=== PATIENT | female | born 1960 | race Caucasian/White ===

== ENCOUNTER 2022-01-15 05:21 | Emergency (ER) | payer MEDICARE, OTHER, SELFPAY ==
[2022-01-15 05:30] VITALS: BP 106/62; RESP 18; TEMP 36.9; BMI 74.8
--- NOTE | 2022-01-15 06:04 | CRLHL7_ITS ---
For Patients: As a result of the Cures Act, medical imaging exams and procedure reports are released immediately into your electronic medical record. You may view this report before your referring provider. If you have questions, please contact your health care provider. Indication: Shoulder pain Technique: Two-view right shoulder Comparison: No comparison Findings: Normal articulation glenohumeral joint. No fractures or dislocations. Subacromial space maintained possible calcific tendinosis. Dictated by Ladan Delgado MD @ 01/15/2022 7:20:11 AM (Electronically Signed)
[2022-01-15] MEDS: KETOROLAC 30 MG/ML inj IM (06:06)
--- NOTE | 2022-01-15 08:45 | ED.UPPEXIN ---
HPI - Extremity Injury (Upper) General Date Seen: 01/15/22 Chief Complaint: Shoulder Injury/Pain Stated Complaint: RT side rotator cuff pain Time Seen by Provider: 01/15/22 05:42 Source: patient, RN notes reviewed and old records reviewed Mode of arrival: ambulatory Limitations: no limitations History of Present Illness HPI narrative: Patient is a 61-year-old female with a history of cesar currently on sertraline, history of left rotator cuff repair who comes to the [facility] with complaints of right shoulder pain. Patient notes that she has not seen a physician for this and has had 3 months of ongoing right shoulder pain that has been getting gradually worse. It is definitely worse at night. She states now she is having a hard time with lifting her arm although should when she demonstrates she does quite well. She has not had any fever chills. She denies any trauma or falls. She has no numbness or tingling of the arm. She also denies any swelling. She has come to the emergency room this morning at 0530 hours because she states that she has not been able to sleep last night. She states that she takes Seroquel and this usually helps her with this sleep but not tonight. She is requesting something for pain. Movement increases her pain. She has not taken any medications at home for discomfort. Related Data Home Medications Medication Instructions Recorded Confirmed sertraline 50 mg tablet mg 01/15/22 Allergies Allergy/AdvReac Type Severity Reaction Status Date / Time PCN Allergy Severe rash Uncoded 01/15/22 05:40 Review of Systems Status of ROS: Reports: 10 or more systems reviewed and unremarkable except as noted in History and below Const: Denies: fever or chills Eyes: Denies: change in vision ENMT: Denies: neck pain Cardio: Denies: chest pain GI: Denies: abdominal pain Musculo: Reports: joint pain and limited range of motion; Denies: neck pain, extremity pain (Right shoulder) or extremity swelling Integ/Breast: Denies: rash Neuro: Denies: headache or numbness in extremities Psych: Reports: other (History of cesar but denies any problems at this time) [facility] Medical History Abnormal pupillary function, unspecified ADD (attention deficit disorder) Anxiety Bipolar 1 disorder Depression Hypermetropia Personality disorder Prediabetes Presbyopia Social History Smoking Status: Current every day smoker What tobacco products do you use: cigarettes Smoking packs per day: 1 Smoking cigarettes per day: 20.0 Years smoked: 30 Smoking pack-years: 30.00 How often do you have a drink containing alcohol: never AUDIT-C Alcohol total score: 0 Non-prescribed substance use: denies use Exam Const: Vital Signs, click to edit/add: Vital Signs - 24 hr 01/15/22 05:30 Temperature 98.5 F Respiratory Rate 18 Blood Pressure [10 6/62] 106/62 Oxygen Delivery Me thod Room Air Patient is noted to be pacing from the bed to the corner. She wants to keep her door open. She has some mildly pressured speech. She is easily redirectable. Documenting provider has reviewed patient's vital signs: yes Common normals: oriented x3, healthy appearing and alert General appearance: cooperative and anxious; no odor of alcohol detected HENMT: Common normals: normocephalic, head/scalp atraumatic and external nose normal Head and scalp: normocephalic and atraumatic Face and sinus: normal facial exam Nose: external nose normal Eye: Common normals: PERRL General eye: normal appearance of both eyes Pupil: PERRL Neck & C-Spine: Common normals: full ROM and supple General: no tenderness Resp: Common normals: normal respiratory effort and clear to auscultation bilaterally Auscultation: clear to auscultation bilaterally Cardio: Common normals: regular rate and regular rhythm Rate: regular rate Rhythm: regular rhythm Peripheral pulses: brachial pulses present, radial pulses present and ulnar pulses present Extremity: Other: Patient has full sensation motor of the right upper extremity at the elbow wrist hands. She has a abduction to approximately 65?. Passive range of motion does not appear to cause her discomfort. No obvious swelling or erythema. Neuro: Common normals: oriented x3 Sensorium/orientation: alert Psych: Common normals: thought process normal and cooperative Attitude: agitated Activity/motor behavior: appropriate eye contact Speech: pressured Thought process: normal thought process Thought content: normal thought content Attention/concentration: attention grossly intact Memory/cognition: memory grossly intact Insight: fair Judgement: judgment good Other: Patient noted to frequently interrupt. Repeated suggestions are taken well and patient is directable. Course Course Hospital Course: At this time patient does not appear to have frozen shoulder as passive range of motion is full without discomfort. I believe she does have rotator cuff issues as pain appears to be worse at night and she has a history of this. Patient is seeing myself for the 1st time and has not seen primary MD. I have stressed the importance of follow-up. At this time will obtain x-ray as pain appears to be quite severe. Will also suggest injection of Toradol 30 mg IM. Would like to stay away from narcotics as well as steroids steroids in particular as patient has a history of cesar. Vital Signs Vital signs: Initial Vital Signs Temperature 98.5 F 01/15/22 05:30 Temperature Source Temporal Artery Scan 01/15/22 05:30 Respiratory Rate 18 01/15/22 05:30 Blood Pressure 106/62 01/15/22 05:30 Blood Pressure Mean 76 01/15/22 05:30 Oxygen Delivery Method 01/15/22 05:30 Vital Signs Temperature 98.5 F 01/15/22 05:30 Respiratory Rate 18 01/15/22 05:30 Blood Pressure 106/62 01/15/22 05:30 Oxygen Delivery Method 01/15/22 05:30 Temperature 98.5 F 01/15/22 05:30 Respiratory Rate 18 01/15/22 05:30 Blood Pressure 106/62 01/15/22 05:30 Oxygen Delivery Method 01/15/22 05:30 MDM - Extremity Injury (Upper) MDM Narrative Medical decision making narrative: 1. Right shoulder pain-at this time I do believe patient has rotator cuff tendinitis. Patient received Toradol 30 mg IM and even though she said she was still having pain she was objectively markedly improved. Unfortunately I do not feels comfortable giving patient steroid given her history of cesar. Instead will have her use ibuprofen 600 mg every 8 hours and for breakthrough pain may use [place] 5/325, 1-2 tablets p[address] q.4-[address] Recommend follow-up with primary MD or orthopedics as soon as possible. I did tell patient that we would not be dispensing any more narcotics out of the ED. a check of the [employer] shows no recent narcotics. Patient denies any history of addiction and I do not find history of addiction in her past records. 2. History of cesar-patient did have some mildly pressured speech but is directable. Patient denies cesar being an issue at this time. 3. Disposition-patient is discharged home. Her son will give her a ride. She is instructed not to use alcohol or drive if using narcotics. Medical Records Attestation: I reviewed the patient's medical records. Imaging Data Right shoulder x-ray: Attestation: I have reviewed the pertinent imaging results. My impression: No fractures Radiologist's impression: No acute injuries Discharge Plan Discharge Clinical Impression: Right shoulder pain Patient Disposition: Home, Self-Care Condition: Improved Instructions: Shoulder Pain (ED) Additional Instructions: Suggest ibuprofen 600 mg every 8 hours as needed for discomfort. For pain not relieved by ibuprofen you may use Vicodin also known as [place] or hydrocodone sparingly. 1-2 tablets every 6-8 hours as needed. No further narcotic pain medication will be given out of the emergency room. You will need to follow-up with your primary MD or orthopedics for a recheck. Phone number to orthopedic and fracture clinic is [phone] Return to the emergency room for worsening symptoms or onset of new symptoms. Ice to the shoulder 20 minutes at a time 3 to 4 times a day will also help the discomfort. Prescriptions: No Action sertraline 50 mg tablet Follow Up/Referrals: Provider,Not a Local [Primary Care Provider] - Stand Alone Forms: [facility] Info Instructions
== END 2022-01-15 07:54 | disposition home or self-care (01) ==
PROVIDERS: Emergency Provider Family Medicine
DX: M25.511 Pain in right shoulder (principal)
CPT/HCPCS: 73030; 96372; 99283; 99284; J1885

== ENCOUNTER 2024-11-01 16:15 | Emergency (ER) | payer MEDICARE, MEDICAID, SELFPAY ==
--- OUTSIDE RECORDS SUMMARY | 2024-11-01 16:16 | XMS_ITS | Clinical Summary ---
Author Organization [facility] Address [address] [place] [id number] Care Team Providers Care Tax Services Professional Name Role Phone Clinic, No Pcp Or Primary Care Provider Unavaila ble Allergies Active Allergy Reactions Criticality Noted Date Comments Penicillins Hives 02/16/2006 Medications cholecalciferol (Vitamin D) 1,000 unit capsuleIndicati ons:Bipolar disorder with depression (HC) Take 1 Capsule (1,000 units) by mouth once daily. 30 Capsule 2 Active busPIRone 7.5 mg tabletIndicatio ns:Bipolar disorder with depression (HC) Take 1 Tablet (7.5 mg) by mouth three times daily. 300 Tablet 3 3 Active QUEtiapine (SEROQUEL) 300 mg tabletIndicatio ns:Bipolar disorder with depression (HC) Take 2 Tablets (600 mg) by mouth at bedtime. 180 Tablet 3 3 Active DULoxetine (CYMBALTA) 60 mg Delayed-release capsuleIndicati ons:Bipolar disorder with depression (HC) Take 1 Capsule (60 mg) by mouth once daily. 90 Capsule 3 3 Active FLUoxetine (PROZAC) 20 mg capsule Take 20 mg by mouth once daily. 4 Active hydrOXYzine HCL (ATARAX) 25 mg tablet 3 Active ammonium lactate 12% topical (LACHYDRIN) 12 % lotionIndicatio ns:Fissure in skin of both feet,Dry skin Apply topically to affected area(s) two times daily. 396 g 5 4 Active Active Problems Problem Noted Date Diagnosed Date Prediabetes 09/13/2022 Adenomatous colon polyp 08/16/2018 Overview (08/16/2018): Colonoscopy 07/2018 polyp, repeat in 5 years Cervical high risk HPV (human papillomavirus) te st positive 06/28/2018 Overview (06/16/2021): 06/2018-NIL/HPV+, HPV 16 & 18 negative 04/2021- NIL/HPV negative PLAN:Pap/HPV DUE 04/2024 Controlled substance agreement signed 12/19/2017 Overview (12/19/2017): 12/19/17 updated/ signed .Eugeina Jacobs DNP, DISCHARGE COORDINATOR, MICROFILMER/psychiatry History of bipolar disorder 08/24/2017 Depression 08/24/2017 Controlled substance agreement signed 08/24/2017 Overview (08/24/2017): 08/24/17 signed .Eugenia Jacobs DNP, DISCHARGE COORDINATOR, MICROFILMER/psychiatry Personality disorder 05/11/2017 Attention deficit hyperactiv ity disorder (ADHD), combined type 03/15/2017 Methamphetamine abuse, 12/1412/21/2016 narcotic agreement, chronic foot pain, Vicodin number 30 per month, RJ, 10/07/13 10/07/2013 Anxiety 09/02/2013 Foot pain, right 09/02/2013 Prediabetes 10/01/2012 ADD (attention deficit disorder) 12/26/2011 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 Bipolar I disorder- psychiat sayra Weinberg Associate of psychiatry 11/11/2009 smoker 11/11/2009 Routine health maintenance 11/11/2009 Overview (09/11/2022): will not do mammogram screening - her sister had 14 and then got cancer - this patient had 6 babies and knows they work Wanted one peek at the lungs 2021- will not do yearly CT Presbyopia 03/29/2006 Hypermetropia 03/29/2006 Abnormal pupillary function, unspecified 006 Immunizations Immunization Administration Dates Next Due Td (Age >=7 Years) 09/29/2007 Td, Preservative Free (age >= 7 Years) 8 Tdap 11/01/2010 Family History Medical History Relation Name Comments Good Health Father Good Health Mother Relation Name Status Comments Father Alive Mother Alive Social History Tobacco Use Types Packs/Day Years Used Date Smoking Tobacco: Every Day Cigarettes 1 30 Smokeless Tobacco: Never Tobacco Cessation:Ready to Q uit: No; Counseling Given: Yes Comments:0.5 ppd average for 20 years, then 1-1.5 ppd for next 20 years Alcohol Use Standard Drinks/Week Comments Yes 0 (1 standard drink = 0.6 oz pur e alcohol) 2-3x weekly PHQ-2 Answer Date Recorded PHQ-2 TOTAL SCORE 4 09/11/2022 Financial Resource Strain Answer Date R ecorded Difficulty of Paying Living Expenses Not on file 04/21/2021 Difficulty of Paying Living Expenses Not on file 04/21/2021 Comments No Sex and Gender Information Value Date Recorded Sex Assigned at Not on file Legal Sex Female 5:45 AM HEALTH INSURANCE SPECIALIST Gender Identity Not on file Sexual Orientation Not on file Obstetrics History Para Term AB IAB SAB Ectopic Multiple Livin g Live Births 6 Last Filed Vital Signs Vital Sign Reading Time Taken Comments Blood Pressure 115/78 09/11/2022 1:37 PM CDT Pulse 86 07/10/2023 4:06 PM CDT Temperature 36.8 C (98.3 F) 06/03/2021 1:43 PM HEALTH INSURANCE SPECIALIST Respiratory Rate 18 09/11/2022 1:37 PM CDT Oxygen Saturation 97% 07/10/2023 4:06 PM CDT Inhaled Oxygen Concentration - - Weight 84.8 kg (187 lb) 07/10/2023 4:06 PM CDT Height 162.6 cm (5' 4) 09/11/2022 1:37 PM CDT Body Mass Index 32.1 09/11/2022 1:37 PM CDT Plan of Treatment Health Maintenance Due Date Last Done Comments Pneumococcal series for age 50+ (1 of 2 - PCV) 1981 Mammogram for age 45-75 11/30/2007 Zoster (shingles) series for age 50+ (1 of 2) 2012 Tetanus booster 11/01/2020 11/01/2010, 04/2007, 09/27/[address] (for lung CA) age 50-80 06/03/2022 06/03/2021 Colonoscopy through age 75 08/16/202308/15, 08/15/2018, 08/15/2018 BMI (ht and wt on same day) for age 18+ 09/12/2023 09/11/2022, 05/19/2021, 10/14/2020, Additional history exists Depression screening for age 12+ 09/15/2023 09/14/2022, 09/13/2022, 09/12/2022, Additional history exists COVID-19 vaccine series ( season) 2023 Pap test for age 21-65 05/19/2024 , 05/19/2021, 07/24/2018, Additional history exists Influenza Vaccine (#1) 2024 Lipids for age 45-75 09/12/2027 09/11/2022, 05/19/2021, 06/29/2020, Additional history exists RSV vaccine for adults or (1 - 1-dose 75+ series) 2037 Hepatitis C screening for age 18-79 Completed 05/19/2021 HIV for age 15-65 Completed 09/11/2022 Hepatitis B series for 19+ Aged Out N o longer eligible based on patient's age to complete this topic Procedures Procedure Name Priority Date/Time Associated Diagnosis Comments LC HIV-1/O/2, 4TH GENERATION Routine 09/11/2022 2:11 PM CDT Screening for HIV (human immunodeficiency virus) LIPID PANEL W REFLEX MEASURED LDL Routine 09/11/2022 2:11 PM CDT Lipid screening CT CHEST SCREENING LOW DOSE WO CONTRAST Routine 06/03/2021 2:09 PM HEALTH INSURANCE SPECIALIST Encounter for screening for malignant neoplasm of lung in current smoker with 30 pack year history or greater ANTI HCV Routine 05/19/2021 4:39 PM HEALTH INSURANCE SPECIALIST Need for hepatitis C screening test GROCERY DEPARTMENT MANAGER THIN PREP PAP SCREEN IMAGED Routine 05/19/2021 4:18 PM HEALTH INSURANCE SPECIALIST Pap smear for cervical cancer screening COLONOSCOPY 08/15/2018 10:38 AM CDT from Last 3 Months or Most Recently Relevant to Health Maintenance Results * LC HIV-1/O/2, 4TH GENERATION (09/11/2022 2:11 PM CDT) Pathologist [facility] [place] HIV Scr 4th Gen Non Reactive Non Reactive 09/13/2022 2:08 PM CDT [facility] ([facility]) Comment: HIV Negative HIV-1/HIV-2 antibodies and HIV-1 p24 antigen were NOT detected. There is no laboratory evidence of HIV infection. Blood BLOOD SPECIMEN / Unknown Venipuncture / Unknown 09/11/2022 2:11 PM CDT 09/11/2022 2:12 PM CDT Narrative [facility] ([facility]) - 09/13/2022 2:08 PM CDT Performed at: [address] [place] [id number] Hair Weaver: Paras Acevedo MD, Phone: [phone] us Derek Fair MD LABORATORY Final Res ult [facility] ([facility]) [address] [place] [address], * (ABNORMAL) LIPID PANEL W REFLEX MEASURED LDL (09/11/2022 2:11 PM CDT) CHOLESTEROL,TOTAL 237(H) 100 - 199 mg/dL 09/12/2022 3:52 PM CDT [facility] [employer] LABORATORY-[facility] TRAL LABORATORY Comment: Cholesterol, Total Reference Ranges Desirable <200 mg/dL Borderline 200-239 mg/dL High >=240 mg/dL TRIGLYCERIDES 372(H) <150 mg/dL 09/12/2022 3:52 PM CDT [facility] LABORAT[facility] HDL CHOLESTEROL 56 >40 mg/dL 3:52 PM CDT [facility] LAB[facility] NON-HDL CHOLESTEROL 181(H) <145 mg/dl 09/12/2022 3:52 PM CDT [facility] TR[facility] LAB[facility] CHOL/HDL RATIO 4.23 <4.50 09/12/2022 3:52 PM CDT [facility] LDL CHOLESTEROL 107 <=130 mg/dL 09/12/2022 3:52 PM CDT [facility] VLDL CHOLESTEROL 74(H) <=30 mg/dL 09/12/2022 3:52 PM CDT [facility] TRAL LAB[facility] PROVIDER ORDERED STATUS RANDOM 09/12/2022 3:52 PM CDT [facility] Blood BLOOD SPECIMEN / Unknown Venipuncture / Unknown 09/11/2022 2:11 PM CDT 09/11/2022 2:12 PM CDT us Derek Fair MD CHEMISTRY Final Res ult [facility] [address] [place] [address], [place] * CT CHEST SCREENING LOW DOSE WO CONTRAST (06/03/2021 2:09 PM HEALTH INSURANCE SPECIALIST) Anatomical Region Laterality Modality Computed Tomogra phy Impressions 06/05/2021 11:55 AM HEALTH INSURANCE SPECIALIST 1. Tiny perifissural lung nodule. 2. Small calcified plaque in the LAD coronary artery branch. 3. Small low dense liver lesion on certain significance but could be characterized with a limited abdominal ultrasound. Lung rads category 2. Management: Follow up LD CT chest 12 months. Please note that all CT scans at this facility use dose modulation, iterative reconstruction and/or weight-based dosing when appropriate to reduce radiation dose to as low as reasonably achievable. Dictated by: Jseús Fine MD @06/04/2021 8:58:44 PM Narrative 06/05/2021 11:55 AM HEALTH INSURANCE SPECIALIST For Patients: As a result of the Century Cures Act, medical imaging exams and procedure reports are released immediately into your electronic medical record. You may view this report before your referring provider. If you have questions, please contact your health care provider. CT CHEST SCREENING LOW-DOSE WITHOUT CONTRAST 06/03/2021 INDICATION: Screening for lung cancer. TECHNIQUE: CT scan of the chest was obtained using a low-dose lung screen protocol. FINDINGS: Lung nodules: 2 mm perifissural nodule RIGHT upper lobe image 46. Miscellaneous lungs and pleura: No consolidation or pleural effusion. This is dynamic: No significant adenopathy. Small amount of pericardial fluid. Coronary calcification: Small calcified plaque in the LAD. Upper abdomen: Small scar 17 mm low-dense lesion in the LEFT hepatic lobe. Skeletal: New and nonspecific mild thoracic disc degeneration. us Pamela Batista CABLE STRANDER CT Final Result * ANTI HCV (05/19/2021 4:39 PM HEALTH INSURANCE SPECIALIST) Pathologist [facility] [place] HEPATITIS C ANTIBODY Non-React jennifer Non-React jennifer 05/20/2021 4:10 PM HEALTH INSURANCE SPECIALIST [facility] TR[facility] Comment:Antibodies to HCV no t detected; does not exclude the possibility of exposure to HCV. Blood BLOOD SPECIMEN / Unknown Venipuncture / Unknown 05/19/2021 4:39 PM HEALTH INSURANCE SPECIALIST 05/19/2021 4:41 PM HEALTH INSURANCE SPECIALIST Monica Mac MD SEND OUTS Final Resul t [facility] [address] [place] [address], [place] * GROCERY DEPARTMENT MANAGER THIN PREP PAP SCREEN IMAGED (05/19/2021 4:18 PM HEALTH INSURANCE SPECIALIST) Pathologist [facility] [place] Case Report Gynecologic Cytology Report Case: [id number] Authorizing Provider: Monica Mac MD Collected: 05/19/2021 1618 Ordering Location: [facility] Received: 05/20/2021 0710 Clinic First Screen: Patricia Ricardo Rescreen: Lizbeth Kimball Specimen: GROCERY DEPARTMENT MANAGER ThinPrep Vial Screening, Cervical 05/31/2021 7:35 AM HEALTH INSURANCE SPECIALIST [facility] INTERPRETATION/ RESULT NEGATIVE FOR INTRAEPITHELIAL LESION OR MALIGNANCY (NIL) (none) 05/31/2021 7:35 AM HEALTH INSURANCE SPECIALIST [facility]AL LAB[facility] at 0735 HEALTH INSURANCE SPECIALIST SPECIMEN ADEQUACY Satisfactory for evaluation Endocervical component present 05/31/2021 7:35 AM HEALTH INSURANCE SPECIALIST [facility]LA LABORATORY HPV REQUEST HPV and PAP 05/31/2021 7:35 AM HEALTH INSURANCE SPECIALIST [facility] ENTRAL LABORATORY Date of LMP postmenopausal 2 7:35 AM HEALTH INSURANCE SPECIALIST [facility] EN[facility]AL LABORATORY Last Pap Date 07/24/18 05/31/2021 7:35 AM HEALTH INSURANCE SPECIALIST [facility] Last Pap Result NIL 2 7:35 AM HEALTH INSURANCE SPECIALIST [facility] EN[facility]AL LABORATORY Abnormal Pap or [place] Bx in last 5 years Yes 05/31/2021 7:35 AM HEALTH INSURANCE SPECIALIST [facility] Menstrual Status Postmenopausal 05/31/2021 7:35 AM HEALTH INSURANCE SPECIALIST [facility] LAB[facility] [place] Bx Done Today No 05/31/2021 7:35 AM HEALTH INSURANCE SPECIALIST [facility] Additional Information None given 05/31/2021 7:35 AM HEALTH INSURANCE SPECIALIST [facility] LAB[facility] Comment: Cytology is screened at [facility] Central Laboratory - [address] [address] and [facility] Laboratory - [address] [place] [address] and [facility] - [address] [place] [address] Interpreted at [facility], Central Laboratory - [address], [place] [address] Automated Review Successful 05/31/2021 7:35 AM [facility] ENTRLA LABORATORY Comment:Specimen processed s uccessfully by automated glacing machine tender device, ThinPrep Imaging System, [employer] ANCILLARY TESTING GROCERY DEPARTMENT MANAGER HPV Ordered, Please see separate report 05/31/2021 7:35 AM HEALTH INSURANCE SPECIALIST [facility] LAB[facility] Note The pap test is a screening technique, not a diagnostic procedure. It is used primarily to screen for squamous cancers and precursor lesions. Published studies have shown that it is subject to both false negative and false positive results. The pap test should not be used as the sole means to diagnose or exclude pre-malignant and malignant lesions. 05/31/2021 7:35 AM HEALTH INSURANCE SPECIALIST [facility] LABORAT[facility]-C ENTRAL LABORATORY Other (Cervical) Non-Blood / Unknown 05/19/2021 4:18 PM HEALTH INSURANCE SPECIALIST 05/20/2021 7:10 AM HEALTH INSURANCE SPECIALIST us Monica Mac MD PATHOLOGY/CYTOLOGY Final Re sult [facility] LABORATORY-CENTRAL LABORATORY [address] [place] [address], [place] * COLONOSCOPY (08/15/2018 10:38 AM CDT) 08/15/2018 10:3 8 AM CDT Narrative Transcriptions Roberto Martines MD - 08/15/2018 12:10 PM CDT Patient Name: Fay Yadav Procedure Date: 08/15/2018 Gender: Female Date of : 1960 Admit Type: Outpatient Procedure: Colonoscopy Proceduralist: Roberto Martines MD , Coco Nguyen (Nurse) Indications/Pre-Op Diagnosis: Screening for colorectal malignant neoplasm, This is the patient's first colonoscopy Medications: Fentanyl 100 micrograms IV, Midazolam 4 mgIV, The level of sedation administered wasmoderate Procedure Description: The patient had risks, benefits and alternatives explained to andgave informed consent. The patient had a stable cardiopulmonary status and judged an adequate candidate for conscious sedation. The [facility]-Q290AL [id number] was passed through the anus and advanced tothe cecum, identified by appendiceal orifice and ileocecal valve. The colonoscopy was performed without difficulty. The patient toleratedthe procedure well. The quality of the bowel preparation was good. The ileocecal valve, appendiceal orifice, and rectum were photographed. Complications: No immediate complications. Estimated Blood Loss & Specimen: Estimated blood loss: none. Specimen collected - Yes and sent to Laboratory Findings: The perianal and digital rectal examinations were normal. A 3 mm polyp was found in the cecum. The polyp was sessile. The polyp was removed with a cold biopsy forceps. Resection and retrieval were complete. Two sessile polyps were found in the rectum. The polyps were 3 mm in size. These polyps were removed with a cold snare. Resection and retrieval were complete. The colon (entire examined portion) was mildly redundant. The exam was otherwise without abnormality on direct and retroflexion views. Impressions/Post-Op Diagnosis: - One 3 mm polyp in the cecum, removed with a cold biopsy forceps. Resected and retrieved. - Two 3 mm polyps in the rectum, removed with a cold snare. Resectedand retrieved. - Redundant colon. - The examination was otherwise normal on direct and retroflexionviews. Recommendation: - Patient has a contact number available for emergencies. The signsand symptoms of potential delayed complications were discussed with the patient. Return to normal activities tomorrow. Written discharge instructions were provided to the patient. - Resume previous diet. - Continue present medications. - Await pathology results. - Repeat colonoscopy is recommended. The colonoscopy date will be determined after pathology results from today's exam become available for review. Moderate Sedation: Moderate (conscious) sedation was administered by the endoscopy nurse and supervised by the endoscopist. The following parameters were monitored: oxygen saturation, heart rate, respiratory rate, blood pressure, adequacy of pulmonary ventilation and reponse to care. Please refer to the patien'ts medical record flowsheets and nursing notes for moderate sedation details. Total physician intraservice time was 30 minutes. Roberto Martines MD 08/15/2018 12:10:45 PM This report has been signed electronically. Note Initiated On: 08/15/2018 10:38 AM Procedure Code(s): --- Professional --- 92355, Colonoscopy, flexible; with removalof tumor(s), polyp(s), or other lesion(s) bysbakari technique 98586, 59, Colonoscopy, flexible; withbiopsy, single or multiple Diagnosis Code(s): --- Professional --- Z12.11, Encounter for screening formalignant neoplasm of colon D12.0, Benign neoplasm of cecum K62.1, Rectal polyp Q43.8, Other specified congenitalmalformations of intestine CPT copyright 2017 [employer]. All rights reserved. The codes documented in this report are preliminary and upon geophysics scientist reviewmay be revised to meet current compliance requirements. Scope In: 11:38:36 AM Scope Withdrawal Time 0 hours 11 minutes 2 seconds Scope Out: 12:06:42 PM Roberto Martines MD PROCEDURE ORD Final Res ult from Last 3 Months or Most Recently Relevant to Health Maintenance Insurance MEDICARE PART B HB ONLY MEDICARE PART A HB ONLY MEDICA D[employer] [facility] WORKERS COMP MEDICARE PART B HB ONLY MEDICARE PART A HB ONLY Care Teams Tax Services Professional Relationship Specialty Start Date End Date Clinic, No Pcp Or . PCP - General 11/17/19
--- OUTSIDE RECORDS SUMMARY | 2024-11-01 16:17 | XMS_ITS | Clinical Summary ---
Author Organization [facility] Address [address] [place] [address] Care Team Providers Care Public Improvement Inspector Name Role Phone No Ref-Primary, Physician Primary Care Provider Vanessa Mariee MD Unavailable [phone] Allergies Active Allergy Reactions Criticality Noted Date Comments Penicillins Hives 01/09/2012 Medications QUEtiapine Fumarate (SEROQUEL PO)Indications:Inso mnia Take 600 mg by mouth At Bedtime. Indications: Trouble Sleeping Active Amphetamine-Dextroa mphetamine (ADDERALL PO)Indications:Atte ntion Deficit Disorder (Inactive) Take 50 mg by mouth daily. Indications: Attention Deficit Disorder Active MULTIPLE VITAMIN PO Take 1 tablet by mouth daily. Active B Complex Vitamins (VITAMIN B COMPLEX) tablet Take 1 tablet by mouth daily. Active calcium carbonate-vitamin D (CALCIUM + D) 600-200 MG-UNIT TABS Take 1 tablet by mouth daily. Active oxyCODONE-acetamino phen (PERCOCET) 5-325 MG per tabletIndications:A ftercare following surgery of the musculoskeletal system, NEC Take 1-2 tablets by mouth every 4 hours as needed for pain. 40 tablet 0 2 Active hydrOXYzine (VISTARIL) 25 MG capsuleIndications: Aftercare following surgery of the musculoskeletal system, NEC Take 1 capsule by mouth every 6 hours as needed for itching. 30 capsule 0 2 Active oxyCODONE-acetamino phen (PERCOCET) 5-325 MG per tabletIndications:A ftercare following surgery of the musculoskeletal system, NEC Take 1-2 tablets by mouth every 4 hours as needed for pain. 25 tablet 0 2 Active oxyCODONE-acetamino phen (PERCOCET) 5-325 MG per tabletIndications:A ftercare following surgery of the musculoskeletal system, NEC Take 1-2 tablets by mouth every 4 hours as needed for pain. 25 tablet 0 2 Active HYDROcodone-acetami nophen 5-325 MG per tabletIndications:S urgery aftercare Take 1 tablet by mouth every 6 hours as needed for pain. 30 tablet 0 2 Active HYDROcodone-acetami nophen 5-325 MG per tabletIndications:A ftercare following surgery of the musculoskeletal system, NEC Take 1 tablet by mouth every 6 hours as needed for pain. 30 tablet 0 2 Active Active Problems No known active problems Resolved Problems Problem Noted Date Diagnosed Date Resolved Date Other peripheral enthesopathies 03/28/2012 04/16/2012 Enthesopathy of ankle and tarsus 03/28/2012 04/16/2012 Overview (01/29/2015): Problem list name updated by automated process. Provider to review Strain of peroneal tendon 03/28/2012 Other postprocedural status(V45.89) 03/28/2012 04/16/2012 Social History Tobacco Use Types Packs/Day Years Used Date Smoking Tobacco: Every Day Cigarettes Alcohol Use Standard Drinks/Week Comments No 0 (1 standard drink = 0.6 oz pur e alcohol) Adolescent Education Answer Date Record ed Getting School Help Needed Not on file 02/04 Comments No Sex and Gender Information Value Date Recorded Sex Assigned at Not on file Legal Sex Female 3:17 AM COMPUTER EDUCATION TEACHER Gender Identity Not on file Sexual Orientation Not on file Last Filed Vital Signs Vital Sign Reading Time Taken Comments Blood Pressure 124/78 04/19/2012 11:04 AM COMPUTER EDUCATION TEACHER Pulse 80 04/19/2012 11:04 AM COMPUTER EDUCATION TEACHER Temperature 36.6 C (97.9 F) 02/02/2012 11:58 AM CDT Respiratory Rate 12 02/02/2012 11:58 AM CDT Oxygen Saturation 100% 01/25/2012 2:34 PM CDT Inhaled Oxygen Concentration - - Weight 88 kg (194 lb) 04/19/2012 11:04 AM COMPUTER EDUCATION TEACHER Height 165.1 cm (5' 5) 02/02/2012 11:58 AM CDT Body Mass Index 32.28 02/02/2012 11:58 AM CDT Plan of Treatment Not on file Insurance MEDICA ACCESS ABILITY [place] Care Teams Public Improvement Inspector Relationship Specialty Start Date End Date No Ref-Primary, Physician PCP - General 09/01/20 Vanessa Mariee MD [address] [place] [id number] Otolaryngology 09/01/20
[2024-11-01 16:19] VITALS: BP 113/80; PULSE 112; RESP 18; TEMP 36.7; O2SAT 97
--- NOTE | 2024-11-01 16:39 | ED_ITS ---
HPI - General Adult General Chief complaint: Abdominal Pain Stated complaint: Stomach Pain Time Seen by Provider: 11/01/24 16:20 Source: patient Mode of arrival: ambulatory Limitations: no limitations History of Present Illness HPI narrative: 63-year-old female coming in today complaining of abdominal pain started around noon. Pain is diffuse, located across the entire abdomen. It comes and goes in waves. Nothing makes it better or worse. She felt nauseated but has not vomited. Denies vomiting. Denies diarrhea or constipation. Last bowel movement was this morning and was normal. She is passing gas. She denies any urinary symptoms like increased frequency, urgency or dysuria. She had lunch without difficulty and then the pain started. Has not wanted to eat anything since. Pain does not radiate into her back. 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, unspecified eye (ICD-10) Presbyopia ?H52.4 - Presbyopia (ICD-10) Prediabetes ?R73.03 - Prediabetes (ICD-10) Abnormal pupillary function, unspecified ?H57.00 - Unspecified anomaly of pupillary function (ICD-10) Depression ?F32.A - Depression, unspecified (ICD-10) Personality disorder ?F60.9 - Personality disorder, unspecified (ICD-10) Anxiety ?F41.9 - Anxiety disorder, unspecified (ICD-10) ADD (attention deficit disorder) ?F98.8 - Other specified behavioral and emotional disorders with onset usually occurring in childhood and adolescence (ICD-10) Bipolar 1 disorder ?F31.9 - Bipolar disorder, unspecified (ICD-10) Social History Smoking Status: Current every day smoker What tobacco products do you use: cigarettes Smoking packs per day: 1 Smoking cigarettes per day: 20.0 Years smoked: 30 Smoking pack-years: 30.00 Do you use any of these nicotine containing products: None How often do you have a drink containing alcohol: never How often do you have six or more drinks on one occasion: Never AUDIT-C Alcohol total score: 0 Non-prescribed substance use: denies use service: No Exam Narrative: Exam Narrative: Well-nourished well-developed patient, appears uncomfortable. Alert and oriented. Answers questions appropriately. Mood and affect are appropriate. Thoughts are goal oriented and rational. No tangential or magical thinking noted. Patient speaks in full sentences without needing to catch her breath. HEENT: Normocephalic atraumatic. Pupils are equally round reactive to light. Extraocular muscles are intact. Conjunctivae are moist without any icterus noted. Moist mucous membranes. Cardiovascular: Heart is regular rate and rhythm S1 and S2 are present without any murmurs. Lungs: Clear to auscultation bilaterally no wheezes rhonchi or rales are appreciated. Patient takes deep breaths without any discomfort. Abdomen: Soft and nondistended with normal bowel sounds. Diffusely tender. Extremities: Bilateral lower extremities are without edema. Skin: Well perfused without any obvious rashes. Const: Vital Signs, click to edit/add: Vital Signs - 24 hr 11/01/24 16:19 Temperature 98.1 F Pulse Rate [Pulse Oximeter] 112 H Respiratory Rate 18 Blood Pressure [Ri ght Upper Arm] 113/80 Pulse Oximetry 97 Oxygen Delivery Me thod Room Air Course Course ED Course: IV established in we started a L of normal saline, 2 mg of IV morphine and 4 mg of IV Zofran. Labs were drawn in an abdominal CT scan was ordered. CBC was unremarkable. Lactate was elevated at 2.4. At this time remainder of her lab work was pending and patient refused her CT scan and stated that she was feeling better and wanted to leave. We stated that we did not know why she was having this diffuse pain and she stated that she no longer wanted any treatment and wished to leave the ER. Patient left the ER against medical advice at this time. Vital Signs Vital signs: Initial Vital Signs Temperature 98.1 F 11/01/24 16:19 Temperature Source Temporal Artery Scan 11/01/24 16:19 Pulse Rate 112 H 11/01/24 16:19 Respiratory Rate 18 11/01/24 16:19 Blood Pressure 113/80 11/01/24 16:19 Blood Pressure Mean 91 11/01/24 16:19 Blood Pressure Position Sitting 11/01/24 16:19 Pulse Oximetry 97 11/01/24 16:19 Oxygen Delivery Method Room Air 11/01/24 16:19 Vital Signs Temperature 98.1 F 11/01/24 16:19 Pulse Rate 112 H 11/01/24 16:19 Respiratory Rate 18 11/01/24 16:19 Blood Pressure 113/80 11/01/24 16:19 Pulse Oximetry 97 11/01/24 16:19 Oxygen Delivery Method Room Air 11/01/24 16:19 Temperature 98.1 F 11/01/24 16:19 Pulse Rate 112 H 11/01/24 16:19 Respiratory Rate 18 11/01/24 16:19 Blood Pressure 113/80 11/01/24 16:19 Pulse Oximetry 97 11/01/24 16:19 Oxygen Delivery Method Room Air 11/01/24 16:19 Medications Administered Medications: Generic Name Dose Route Start Last Admin Trade Name Freq PRN Reason Stop Dose Admin Sodium Chloride 1,000 mls @ 1,000 mls/hr 11/01/24 17:00 11/01/24 17:26 0.9 % Sodium Chloride 1000 Ml IV 11/01/24 17:59 Infused .Q1H GAIL Infusion Discontinued Medications Generic Name Dose Route Start Last Admin Trade Name Freq PRN Reason Stop Dose Admin Morphine Sulfate 2 mg 11/01/24 16:37 11/01/24 16:51 Morphine 2 Mg/Ml Inj IVP 11/01/24 16:38 2 mg ONCE ONE Administration Ondansetron HCl 4 mg 11/01/24 17:12 11/01/24 17:20 Ondansetron 2 Mg/Ml Inj IVP 11/01/24 17:13 4 mg ONCE ONE Administration Medical Decision Making MDM Narrative Medical decision making narrative: 63-year-old female with diffuse abdominal pain. Left the emergency room AMA. Lab Data Lab results reviewed: Yes I reviewed the patient's lab results Labs: Lab Results 11/01/24 Range/Units 17:00 WBC 10.50 (4.50-11.00) K/uL RBC 4.58 (4.00-5.20) m/uL Hgb 15.2 (12.0-16.0) gm/dL Hct 44.2 (33.0-51.0) % MCV 97 (80-100) fL MCH 33 (26-34) pg MCHC 34 (32-36) gm/dL RDW Coeff of Zack 13.0 (11.5-15.5) % Plt Count 289 (140-440) K/uL Neut % (Auto) 63.7 (42.0-72.0) % Lymph % (Auto) 27.7 (20-44) % [place] % (Auto) 5.2 (0.0-11.0) % Eos % (Auto) 2.8 (0.0-7.0) % Baso % (Auto) 0.4 (0.0-3.0) % Neut # (Auto) 6.69 (1.7-7.0) K/uL Lymph # (Auto) 2.91 H (0.90-2.90) K/uL [place] # (Auto) 0.50 (0.00-0.90) K/UL Eos # (Auto) 0.29 (0.00-0.50) K/uL Baso # (Auto) 0.04 (0.00-0.30) K/uL Abs Immat Gran (auto) 0.02 (0.00-0.30) K/uL Imm/Tot Granulo (auto) 0.2 % Lactate 2.4 H (0.5-1.9) mmol/L Discharge Plan Discharge Clinical Impression: Abdominal pain Patient Disposition: Left Against Medical Advice Condition: Unchanged Additional Instructions: We have not completed the workup to determine why you are having abdominal pain. There are many reasons for abdominal pain, many of which are life-threatening. The recommendation is to complete the workup which includes labs and an abdominal CT scan to determine why you are having pain. I do recommend you return if your pain continues. Prescriptions: No Action sertraline 50 mg tablet quetiapine 300 mg tablet 600 mg PO QPM Follow Up/Referrals: Provider,Not a Local [Primary Care Provider, Family Practice] Stand Alone Forms: duuinth Info Instructions
[2024-11-01 17:06] LABS: Lactate* 2.4 mmol/L (0.5-1.9)
--- OUTSIDE RECORDS SUMMARY | 2024-11-01 17:16 | XMS_ITS | CCD ---
Author Organization Unknown Care Team Providers Care Chief Minister Name Role Phone Underwriting Internship, [place] Primary Care Provider Unava ilable Unavailable Chronic Care Management Unavaila ble Summary Purpose DataExchange Insurance Providers Payer name Policy type / Coverage type Covered republican ID Effective Begin Date Effective End Date [employer] ([facility]) Commercial Insurance [id number] Unknown Medicaid [place] Commercial Insurance [id number] Unknown Family History Family History data not found Medication Administered No Medication Administered data Reason For Visit No Reason For Visit data
[2024-11-01 17:19] LABS: Hematocrit 44.2 % (33.0-51.0); Hemoglobin* 15.2 gm/dL (12.0-16.0); Immature Granulocytes Abs Auto 0.02 K/uL (0.00-0.30); Immature Granulocytes Pct Auto 0.2 %; Lymphocytes Absolute Auto 2.91 K/uL (0.90-2.90); Mean Corpuscular HGB Conc 34 gm/dL (32-36); Mean Corpuscular Hemoglobin 33 pg (26-34); Mean Corpuscular Volume 97 fL (80-100); RDW Coefficient of Variation % 13.0 % (11.5-15.5); Red Blood Count 4.58 m/uL (4.00-5.20); White Blood Count* 10.50 K/uL (4.50-11.00)
[2024-11-01] MEDS: ONDANSETRON 2 MG/ML inj 4 MG IVP (17:20)
[2024-11-01 17:26] LABS: Slide Review Reflex No
[2024-11-01 17:30] VITALS: BP 126/81; PULSE 109; RESP 16; O2SAT 98
[2024-11-01 17:31] LABS: Albumin* 4.6 g/dL (3.3-5.0); Chloride* 107 mmol/L (96-114); Sodium* 140 mmol/L (135-149)
[2024-11-01 17:33] LABS: Blood Urea Nitrogen* 17 mg/dL (7-30); Creatinine* 0.8 mg/dL (0.5-1.5); Estimated Glomerular Filt Rate 84 ml/min
[2024-11-01 17:34] LABS: Alanine Aminotransferase* 76 U/L (4-35); Alkaline Phosphatase* 68 U/L (40-150); Anion Gap 11 mEq/L (7-15); Aspartate Amino Transferase* 53 U/L (12-35); Bilirubin Direct* 0.4 mg/dL (0.0-0.5); Bilirubin Total* 0.5 mg/dL (0.1-1.5); Calcium* 9.3 mg/dL (8.4-10.6); Carbon Dioxide* 22 mmol/L (20-32); Total Protein* 8.2 g/dL (6.0-8.3)
[2024-11-01 17:51] LABS: Glucose* 137 mg/dL (60-115)
[2024-11-01 17:53] LABS: Potassium* 4.2 mmol/L (3.6-5.1)
--- OUTSIDE RECORDS SUMMARY | 2024-11-01 18:15 | XMS_ITS | CCD ---
Author Organization Unknown Care Team Providers Care Biofuels Engineering Manager Name Role Phone Receiving Room Clerk, [place] Primary Care Provider Unava ilable Unavailable Chronic Care Management Unavaila ble Summary Purpose DataExchange Insurance Providers Payer name Policy type / Coverage type Covered democrat ID Effective Begin Date Effective End Date [employer] ([facility]) Commercial Insurance [id number] Unknown Medicaid [place] Commercial Insurance [id number] Unknown Family History Family History data not found Medication Administered No Medication Administered data Reason For Visit No Reason For Visit data
--- OUTSIDE RECORDS SUMMARY | 2024-11-01 18:15 | XMS_ITS | CCD ---
Author Organization Unknown Care Team Providers Care Tile Molder Hand Name Role Phone Director Internal Control, [place] Primary Care Provider Unava ilable Unavailable Chronic Care Management Unavaila ble Summary Purpose DataExchange Insurance Providers Payer name Policy type / Coverage type Covered green party ID Effective Begin Date Effective End Date Med[employer] ([facility]) Commercial Insurance [id number] Unknown Medicaid [place] Commercial Insurance [id number] Unknown Family History Family History data not found Medication Administered No Medication Administered data Reason For Visit No Reason For Visit data
== END 2024-11-01 17:47 | disposition left against medical advice (07) ==
PROVIDERS: Emergency Provider Family Medicine
DX: Z53.21 Procedure and treatment not carried out due to patient leaving prior to being seen by health care provider (principal)
CPT/HCPCS: 36415; 80048; 80076; 81001; 83605; 83690; 84484; 85025; 86140; 87086; 99284; J2270; J2405; J7030

== ENCOUNTER 2024-11-02 00:01 | Emergency (ER) | payer MEDICARE, OTHER, SELFPAY ==
--- OUTSIDE RECORDS SUMMARY | 2024-11-02 00:03 | XMS_ITS | Clinical Summary ---
Author Organization [facility] Address [address] [place] [id number] Care Team Providers Care Data Compiler Name Role Phone Clinic, No Pcp Or [...] signed 12/19/2017 Overview (12/19/2017): 12/19/17 updated/ signed .Eugenia Jacobs DNP, COMPLIANCE TECHNICIAN, ESTATE CONSERVATOR/psychiatry History of bipolar disorder 08/24/2017 Depression 08/24/2017 Controlled substance agreement signed 08/24/2017 Overview (08/24/2017): 08/24/17 signed .Eugenia Jacobs DNP, COMPLIANCE TECHNICIAN, ESTATE CONSERVATOR/psychiatry Personality disorder 05/11/2017 Attention deficit hyperactiv ity [...] on file Legal Sex Female 5:45 AM FOOD ASSEMBLER Gender Identity Not on file Sexual Orientation Not on file Obstetrics History Para Term AB IAB SAB Ectopic Multiple Livin g Live Births 6 Last Filed Vital Signs Vital Sign Reading Time Taken Comments Blood Pressure 115/78 09/11/2022 1:37 PM CDT Pulse 86 07/10/2023 4:06 PM CDT Temperature 36.8 C (98.3 F) 06/03/2021 1:43 PM FOOD ASSEMBLER Respiratory Rate 18 09/11/2022 1:37 PM CDT [...] DOSE WO CONTRAST Routine 06/03/2021 2:09 PM FOOD ASSEMBLER Encounter for screening for malignant neoplasm of lung in current smoker with 30 pack year history or greater ANTI HCV Routine 05/19/2021 4:39 PM FOOD ASSEMBLER Need for hepatitis C screening test GOOD HUMOR VENDOR THIN PREP PAP SCREEN IMAGED Routine 05/19/2021 4:18 PM FOOD ASSEMBLER Pap smear for cervical cancer screening COLONOSCOPY 08/15/2018 10:38 AM CDT from Last 3 Months or Most Recently Relevant to Health Maintenance Results * LC HIV-1/O/2, 4TH GENERATION (09/11/2022 2:11 PM CDT) Pathologist [facility] HIV Scr 4th Gen Non Reactive Non Reactive 09/13/2022 2:08 PM CDT [facility] ([facility]) Comment: HIV Negative HIV-1/HIV-2 antibodies and HIV-1 p24 antigen were NOT detected. There is no laboratory evidence of HIV infection. Blood BLOOD SPECIMEN / Unknown Venipuncture / Unknown 09/11/2022 2:11 PM CDT 09/11/2022 2:12 PM CDT Narrative [facility] ([facility]) - 09/13/2022 2:08 PM CDT Performed at: [address] [place] [id number] Counsellor: Paras Acevedo MD, Phone: [phone] us Derek Fair MD LABORATORY Final Res ult [facility] ([facility]) [address] [place] [address], * (ABNORMAL) LIPID PANEL W REFLEX MEASURED LDL (09/11/2022 2:11 PM CDT) CHOLESTEROL,TOTAL 237(H) 100 - 199 mg/dL 09/12/2022 3:52 PM CDT [facility] [employer] LABORATORY-[facility] Comment: Cholesterol, Total Reference Ranges Desirable <200 mg/dL Borderline 200-239 mg/dL High >=240 mg/dL TRIGLYCERIDES 372(H) <150 mg/dL 09/12/2022 3:52 PM CDT [facility] HDL CHOLESTEROL 56 >40 mg/dL 3:52 PM CDT [facility] NON-HDL CHOLESTEROL 181(H) <145 mg/dl 09/12/2022 3:52 PM CDT [facility] LAB[facility]ATORY CHOL/HDL RATIO 4.23 <4.50 09/12/2022 3:52 PM CDT [facility] LDL CHOLESTEROL 107 <=130 mg/dL 09/12/2022 3:52 PM CDT [facility] VLDL CHOLESTEROL 74(H) <=30 mg/dL 09/12/2022 3:52 PM CDT [facility] TR[facility] LABORATORY PROVIDER ORDERED STATUS RANDOM 09/12/2022 3:52 PM CDT [facility] Blood BLOOD SPECIMEN / Unknown Venipuncture / Unknown 09/11/2022 2:11 PM CDT 09/11/2022 2:12 PM CDT us Derek Fair MD CHEMISTRY Final Res ult [facility]ORATORY [address] [place] [address], [place] * CT CHEST SCREENING LOW DOSE WO CONTRAST (06/03/2021 2:09 PM FOOD ASSEMBLER) Anatomical Region Laterality Modality Computed Tomogra phy Impressions 06/05/2021 11:55 AM FOOD ASSEMBLER 1. Tiny perifissural lung nodule. 2. Small [...] as low as reasonably achievable. Dictated by: Jesús Fine MD @06/04/2021 8:58:44 PM Narrative 06/05/2021 11:55 AM FOOD ASSEMBLER For Patients: As a result of the [...] mild thoracic disc degeneration. us Pamela Batista METAL TECHNICIAN CT Final Result * ANTI HCV (05/19/2021 4:39 PM FOOD ASSEMBLER) Pathologist [facility] HEPATITIS C ANTIBODY Non-React jennifer Non-React jennifer 05/20/2021 4:10 PM FOOD ASSEMBLER [facility] Comment:Antibodies to HCV no t detected; does not exclude the possibility of exposure to HCV. Blood BLOOD SPECIMEN / Unknown Venipuncture / Unknown 05/19/2021 4:39 PM FOOD ASSEMBLER 05/19/2021 4:41 PM FOOD ASSEMBLER Monica Mac MD SEND OUTS Final Resul t [facility] [employer] [facility] [address] [place] [address], [place] * GOOD HUMOR VENDOR THIN PREP PAP SCREEN IMAGED (05/19/2021 4:18 PM FOOD ASSEMBLER) Pathologist [facility] Case Report Gynecologic Cytology Report Case: [id number] Authorizing Provider: Monica Mac MD Collected: 05/19/2021 1618 Ordering Location: [facility] Received: 05/20/2021 0710 Clinic First Screen: Patricia Ricardo Rescreen: Lizbeth Kimball Specimen: GOOD HUMOR VENDOR ThinPrep Vial Screening, Cervical 05/31/2021 7:35 AM FOOD ASSEMBLER [facility] INTERPRETATION/ RESULT NEGATIVE FOR INTRAEPITHELIAL LESION OR MALIGNANCY (NIL) (none) 05/31/2021 7:35 AM FOOD ASSEMBLER [facility] at 0735 FOOD ASSEMBLER SPECIMEN ADEQUACY Satisfactory for evaluation Endocervical component present 05/31/2021 7:35 AM FOOD ASSEMBLER [facility] ENTRNE LABORATORY HPV REQUEST HPV and PAP 05/31/2021 7:35 AM FOOD ASSEMBLER [facility] EN[facility]AL LAB[facility]ATORY Date of LMP postmenopausal 2 7:35 AM FOOD ASSEMBLER [facility] EN[facility]AL LABORATORY Last Pap Date 07/24/18 05/31/2021 7:35 AM FOOD ASSEMBLER [facility] Last Pap Result NIL 2 7:35 AM FOOD ASSEMBLER [facility] EN[facility]AL LABORATORY Abnormal Pap or [place] Bx in last 5 years Yes 05/31/2021 7:35 AM FOOD ASSEMBLER [facility] Menstrual Status Postmenopausal 05/31/2021 7:35 AM FOOD ASSEMBLER [facility] LABORATORY [place] Bx Done Today No 05/31/2021 7:35 AM FOOD ASSEMBLER [facility] LAB[facility] Additional Information None given 05/31/2021 7:35 AM FOOD ASSEMBLER [facility] LAB[facility]ORY Comment: Cytology is screened at [facility] - [address] [address] and [facility] - [address] [place] [address] and [facility] - [address] [place] [address] Interpreted at [facility], Central Laboratory - [address], [place] [address] Automated Review Successful 05/31/2021 7:35 AM [facility] EN[facility] LABORAT[facility] Comment:Specimen processed s uccessfully by automated watch engineer device, ThinPrep Imaging System, [employer] ANCILLARY TESTING GOOD HUMOR VENDOR HPV Ordered, Please see separate report 05/31/2021 7:35 AM FOOD ASSEMBLER [facility] Note The pap test is a screening technique, not a diagnostic procedure. It is used primarily to screen for squamous cancers and precursor lesions. Published studies have shown that it is subject to both false negative and false positive results. The pap test should not be used as the sole means to diagnose or exclude pre-malignant and malignant lesions. 05/31/2021 7:35 AM FOOD ASSEMBLER [facility] LABORATORY-C ENTRAL LABORATORY Other (Cervical) Non-Blood / Unknown 05/19/2021 4:18 PM FOOD ASSEMBLER 05/20/2021 7:10 AM FOOD ASSEMBLER us Monica Mac MD PATHOLOGY/CYTOLOGY Final Re sult [facility]-CENTRAL LABORATORY [address] [place] [address], [place] * COLONOSCOPY (08/15/2018 10:38 AM CDT) [...] an adequate candidate for conscious sedation. The [facility]-[id number] [id number] was passed through the anus and advanced [...] 10:38 AM Procedure Code(s): --- Professional --- 06103, Colonoscopy, flexible; with removalof tumor(s), polyp(s), or other lesion(s) bysbakari technique 99287, 59, Colonoscopy, flexible; withbiopsy, single or multiple Diagnosis Code(s): --- Professional --- Z12.11, Encounter for screening formalignant neoplasm of colon D12.0, Benign neoplasm of cecum K62.1, Rectal polyp Q43.8, Other specified congenitalmalformations of intestine CPT copyright 2017 [employer]. All rights reserved. The codes documented in this report are preliminary and upon factory maintenance manager reviewmay be revised to meet current compliance requirements. Scope In: 11:38:36 AM Scope Withdrawal Time 0 hours 11 minutes 2 seconds Scope Out: 12:06:42 PM Roberto Martines MD PROCEDURE ORD Final Res ult from Last 3 Months or Most Recently Relevant to Health Maintenance Insurance MEDICARE PART B HB ONLY MEDICARE PART A HB ONLY MEDICA [employer] [facility] COMP MEDICARE PART B HB ONLY MEDICARE PART A HB ONLY Care Teams Data Compiler Relationship Specialty Start Date End Date Clinic, No Pcp Or . PCP - General 11/17/19
--- OUTSIDE RECORDS SUMMARY | 2024-11-02 00:04 | XMS_ITS | Clinical Summary ---
Author Organization [place] Address [address] [place] [address] Care Team Providers Care Automotive Brake Technician Name Role Phone No Ref-Primary, Physician Primary Care Provider Vanessa Mariee MD Unavailable [phone] Allergies Active Allergy Reactions Criticality Noted Date [...] on file Legal Sex Female 3:17 AM SEED LABORATORY ASSISTANT Gender Identity Not on file Sexual Orientation Not on file Last Filed Vital Signs Vital Sign Reading Time Taken Comments Blood Pressure 124/78 04/19/2012 11:04 AM SEED LABORATORY ASSISTANT Pulse 80 04/19/2012 11:04 AM SEED LABORATORY ASSISTANT Temperature 36.6 C (97.9 F) 02/02/2012 11:58 AM CDT Respiratory Rate 12 02/02/2012 11:58 AM CDT Oxygen Saturation 100% 01/25/2012 2:34 PM CDT Inhaled Oxygen Concentration - - Weight 88 kg (194 lb) 04/19/2012 11:04 AM SEED LABORATORY ASSISTANT Height 165.1 cm (5' 5) 02/02/2012 11:58 AM CDT Body Mass Index 32.28 02/02/2012 11:58 AM CDT Plan of Treatment Not on file Insurance MEDICA ACCESS [place] Care Teams Automotive Brake Technician Relationship Specialty Start Date End Date No Ref-Primary, Physician PCP - General 09/01/20 Vanessa Mariee MD [address] [place] [id number] Otolaryngology 09/01/20
[2024-11-02 00:17] VITALS: BP 174/97; PULSE 94; RESP 16; TEMP 36.6; O2SAT 98; BMI 34.0
--- NOTE | 2024-11-02 00:59 | CRLHL7_ITS ---
For Patients: As a result of the Century Cures Act, medical imaging exams and procedure reports are released immediately into your electronic medical record. You may view this report before your referring provider. If you have questions, please contact your health care provider. INDICATION: Abdominal pain TECHNIQUE: CT Abdomen and pelvis with i.v. contrast. Coronal and sagittal reformats were obtained. CONTRAST: 95 mL Isovue 370 COMPARISON: None FINDINGS: Lower chest: Unremarkable. Liver: There are 2 cysts along the inferior right lobe of the liver measuring up to 1.6 cm. A small cyst is present in the left lateral segment of the liver measuring 0.8 cm. Mild fatty infiltration of the liver is noted. Spleen: Unremarkable. Pancreas: Unremarkable. Gallbladder: Unremarkable. Kidney: Unremarkable. No kidney or ureteral stones or obstruction seen. Adrenal: Unremarkable. Bowel: Fluid-filled small bowel loops are present in the mid abdomen and near the upper limits of normal in size. Feculent material present and small bowel loops in the right lower quadrant proximal to the terminal ileum which has mild wall thickening. The appendix is normal in appearance and size. Vascular: Unremarkable. Lymph: Unremarkable. Peritoneum: Unremarkable. No pneumoperitoneum is seen. No significant ascites is noted. Pelvis: Unremarkable. Soft tissue: Unremarkable. Bone: Bilateral chronic pars defects of L5 noted with mild anterolisthesis of L5-S1 noted. IMPRESSION: 1. Fluid-filled small bowel loops are present in the mid abdomen and near the upper limits of normal in size. Feculent material present and small bowel loops in the right lower quadrant proximal to the terminal ileum which has mild wall thickening. Clinical correlation recommended to exclude Crohn`s disease or infectious enteritis causing functional obstruction of the proximal small bowel. Dictated by Ishaan Ceballos MD @ 11/02/2024 1:45:48 AM Please note that all CT scans at this facility use dose modulation, iterative reconstruction, and/or weight-based dosing when appropriate to reduce radiation dose to as low as reasonably achievable. Dictated by: Ishaan Ceballos MD @ 11/02/2024 01:45:54 (Electronically Signed)
--- OUTSIDE RECORDS SUMMARY | 2024-11-02 01:03 | XMS_ITS | CCD ---
Author Organization Unknown Care Team Providers Care Asparagus Buncher Name Role Phone Cocoa Powder Mixer Operator, [place] Primary Care Provider Unava ilable Unavailable Chronic Care Management Unavaila ble Summary Purpose DataExchange Insurance Providers Payer name Policy type / Coverage type Covered alliance party ID Effective Begin Date Effective End Date [employer] ([facility]) Commercial Insurance [id number] Unknown Medicaid [place] Commercial Insurance [id number] Unknown Family History Family History data not found Medication Administered No Medication Administered data Reason For Visit No Reason For Visit data
--- OUTSIDE RECORDS SUMMARY | 2024-11-02 01:03 | XMS_ITS | CCD ---
Author Organization Unknown Care Team Providers Care Rivet Catcher Name Role Phone Weed Cooking Operator, [place] Primary Care Provider Unava ilable Unavailable Chronic Care Management Unavaila ble Summary Purpose DataExchange Insurance Providers Payer name Policy type / Coverage type Covered democrat ID Effective Begin Date Effective End Date [employer] ([facility]) Commercial Insurance [id number] Unknown Medicaid [place] Commercial Insurance [id number] Unknown Family History Family History data not found Medication Administered No Medication Administered data Reason For Visit No Reason For Visit data
--- NOTE | 2024-11-02 01:04 | ED_ITS ---
HPI - General Adult General Chief complaint: Abdominal Pain Stated complaint: abdominal pain Time Seen by Provider: 11/02/24 00:07 Source: patient Mode of arrival: ambulatory Limitations: no limitations History of Present Illness HPI narrative: 63-year-old female presents to the emergency department for the 2nd time in 24 hours with abdominal pain. She left against medical advice, note was reviewed. Patient reports that she vomited and had felt temporarily better but the pain worsened again about an hour and half after leaving. She reports that this was after eating and the pain has now been persistent. When asked where, she points to the entire abdomen and then goes off on a very long tangent about the ingredients of this coconut cake that she had made. Does feel nauseated, was observed on the hospital monitors attempting to induce vomiting. When I question her about this, she says that she was hoping it would make her feel better as throwing up did make her feel better earlier. She reports that the pain medicine that she was given did help considerably and request another dose. No bloody stools. Not anticoagulated. Denies prior history of any abdominal surgeries but then as I examine her abdomen I can not clearly tell that she has had abdominal surgery and she reports that in fact yes she has had and abdominal plasty. No fever. Denies prior history of similar symptoms. No prior history of known gallbladder disease. Denies family history. No prior bowel obstruction. No dysuria. No gynecological changes. Did not try any other interventions at home prior to coming to ED. Pain started earlier this morning. Past medical history notable for ?mental health issues. 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 Reports that her only medication is 600 mg of Seroquel at bedtime. Smoker. No alcohol or illicit drugs per her report. Allergy to penicillin. ROS is notable for the GI symptoms only, otherwise denies times 12 system. Prior ED note is reviewed as is previous workup. 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, unspecified eye (ICD-10) Presbyopia ?H52.4 - Presbyopia (ICD-10) Prediabetes ?R73.03 - Prediabetes (ICD-10) Abnormal pupillary function, unspecified ?H57.00 - Unspecified anomaly of pupillary function (ICD-10) Depression ?F32.A - Depression, unspecified (ICD-10) Personality disorder ?F60.9 - Personality disorder, unspecified (ICD-10) Anxiety ?F41.9 - Anxiety disorder, unspecified (ICD-10) ADD (attention deficit disorder) ?F98.8 - Other specified behavioral and emotional disorders with onset usually occurring in childhood and adolescence (ICD-10) Bipolar 1 disorder ?F31.9 - Bipolar disorder, unspecified (ICD-10) Social History Smoking Status: Current every day smoker What tobacco products do you use: cigarettes Smoking packs per day: 1 Smoking cigarettes per day: 20.0 Years smoked: 30 Smoking pack-years: 30.00 Do you use any of these nicotine containing products: None How often do you have a drink containing alcohol: never How often do you have six or more drinks on one occasion: Never AUDIT-C Alcohol total score: 0 Non-prescribed substance use: denies use service: No Exam Const: Vital Signs, click to edit/add: Vital Signs - 24 hr 11/02/24 00:17 11/02/24 01:59 Temperature 98 F Pulse Rate [Pulse Oximeter] 94 81 Respiratory Rate 16 16 Blood Pressure [Ri ght Upper Arm] 174/97 H 121/78 Pulse Oximetry 98 93 Oxygen Delivery Me thod Room Air Room Air Documenting provider has reviewed patient's vital signs: yes Other: Very difficult interview. Does appear well nourished and well hydrated. She interrupts frequently and does not process what I am telling her, asks me a question that I just answered less than 5 seconds before. Does not seem intoxicated. HENMT: Common normals: moist oral mucous membranes and oropharynx normal Face and sinus: normal facial exam Mouth: oral and palatal mucosa normal Eye: Common normals: conjunctivae normal General eye: normal appearance of both eyes Conjunctiva: conjunctiva(e) normal Neck & C-Spine: Common normals: full ROM and no lymphadenopathy General: normal visual inspection Resp: Common normals: normal respiratory effort, no use of accessory muscles and clear to auscultation bilaterally Effort & inspection: able to speak in complete sentences Auscultation: clear to auscultation bilaterally Cardio: Common normals: regular rate, regular rhythm, S1 normal heart sound, S2 normal heart sound and no murmurs Rate: regular rate Rhythm: regular rhythm Heart sounds: S1 normal and S2 normal GI: Other: Abdomen does seem mildly distended. Surgical scarring along suprapubic region consistent with prior abdominal plasty or at least a panniculectomy. Bowel sounds sound normoactive though. She is exquisitely tender to the right upper quadrant but not any other areas for me today. Positive Krishnamurthy sign. No obvious mass. Liver and spleen do not seem enlarged. No hernia. : Common normals: no CVA tenderness Bladder/kidney exam: no CVA tenderness Back & Pelvis: Common normals: no CVA tenderness and thoracic and lumbar spine normal to inspection Extremity: Common normals: normal to inspection and normal capillary refill Neuro: Common normals: moves all extremities Speech: speech normal Gait (neuro): normal gait Psych: Appearance: grossly normal Insight: fair Judgement: fair Skin: Common normals: no rashes or lesions noted General skin exam: no rashes or lesions noted Course Course ED Course: 63-year-old female presenting with abdominal pain and right upper quadrant tenderness on exam highly suspicious for gallbladder disease. Cannot exclude bowel obstruction, colitis, gastroenteritis, gastritis, kidney stone, musculoskeletal etiology, pancreatitis, ischemic bowel, amongst others. Will place peripheral IV, give 0.5 mg of IV Dilaudid, Zofran. Obtain CT, typical intra-abdominal labs. Await findings. Counseled patient that she will not be repeatedly coming out of the room she will use her call light for needs. If she leaves against medical advice, it will delay her care in potentially risk complication. Reevaluation(s) Time of Reevaluation #1: 02:22 Reevaluation #1: Counseled patient on findings. CT does not show any signs of gallbladder disease and labs do not reflect any signs of obstruction. I do not think that we need to call an ultrasound to further clarify this. CT does show some enteritis, no true obstruction. I do think this would explain her symptoms as she does seem slightly distended and symptoms worsen after eating solid food. Her urinalysis is also suggestive of a bladder infection. Patient is requesting more IV pain medicine, I do not think that she needs to be hospitalized as she is holding down some liquids here in the ED. I would like to switch over to oral pain medicine but she would like to be able to drive herself home. Therefore, will give Tylenol 1000 mg and Toradol 10 mg. Will start levofloxacin for her urinary infection in this should cover some of the potential bacterial pathogens for the enteritis as well. Rationale discussed with patient. She is quite concerned about the pain. I let her know that as long as she is not attempting to eat solid foods, her pain will not be quite as severe. Encouraged Tylenol and ibuprofen at home. Limited supply of for oxycodone tablets is given for severe pain. She is also given Zofran for nausea and Flexeril to help with sleep. Alarm symptoms like bloody stools, bloody vomit were reviewed as indications to come to the ED. Hot showers, warm compresses to the abdomen may be helpful as well. But most importantly, clear liquid diet for the next 48 hours. Slowly advance diet after that to include more bland but soft foods, increasing to a full diet over about 4 days. No alcohol. If things are not starting to improve in 48 hours, she should be re-evaluated in the clinic. Alarm symptoms written, reviewed. All questions answered. Prescriptions provided to [facility]. Vital Signs Vital signs: Initial Vital Signs Temperature 98 F 11/02/24 00:17 Temperature Source Temporal Artery Scan 11/02/24 00:17 Pulse Rate 94 11/02/24 00:17 Respiratory Rate 16 11/02/24 00:17 Blood Pressure 174/97 H 11/02/24 00:17 Blood Pressure Mean 122 H 11/02/24 00:17 Blood Pressure Position Sitting 11/02/24 00:17 Pulse Oximetry 98 11/02/24 00:17 Oxygen Delivery Method Room Air 11/02/24 00:17 Vital Signs Temperature 98 F 11/02/24 00:17 Pulse Rate 94 11/02/24 00:17 Respiratory Rate 16 11/02/24 00:17 Blood Pressure 174/97 H 11/02/24 00:17 Pulse Oximetry 98 11/02/24 00:17 Oxygen Delivery Method Room Air 11/02/24 00:17 Temperature 98 F 11/02/24 00:17 Pulse Rate 81 11/02/24 01:59 Respiratory Rate 16 11/02/24 01:59 Blood Pressure 121/78 11/02/24 01:59 Pulse Oximetry 93 11/02/24 01:59 Oxygen Delivery Method Room Air 11/02/24 01:59 Medications Administered Medications: Generic Name Dose Route Start Last Admin Trade Name Elías PRN Reason Stop Dose Admin Hydromorphone HCl 0.5 mg 11/02/24 00:59 11/02/24 01:13 Hydromorphone 0.5 Mg/0.5 Ml Inj IVP 11/02/24 01:00 0.5 mg ONCE ONE Administration Lactated Ringer's 1,000 mls @ 1,000 mls/hr 11/02/24 01:49 11/02/24 01:57 Lactated Ringers 1000 Ml IV 11/02/24 02:48 1,000 mls/hr .Q1H ONE Administration Levofloxacin 750 mg 11/02/24 01:52 11/02/24 02:13 Levofloxacin 750 Mg Tablet PO 11/02/24 01:53 750 mg ONCE ONE Administration Metronidazole 500 mg 11/02/24 01:52 11/02/24 02:13 Metronidazole 500 Mg Tablet PO 11/02/24 01:53 500 mg ONCE ONE Administration Ondansetron HCl 4 mg 11/02/24 00:59 11/02/24 01:13 Ondansetron 2 Mg/Ml Inj IVP 11/02/24 01:00 4 mg ONCE ONE Administration Medical Decision Making Lab Data Lab results reviewed: Yes I reviewed the patient's lab results Lab results narrative: Mild leukocytosis. Bladder infection is present. No signs of biliary obstruction, elevated lactate, elevated lipase or electrolyte abnormality. Overall reassuring. Labs: Lab Results 11/02/24 11/02/24 Range/Units 01:12 01:18 WBC 11.06 H (4.50-11.00) K/uL RBC 4.63 (4.00-5.20) m/uL Hgb 15.4 (12.0-16.0) gm/dL Hct 44.6 (33.0-51.0) % MCV 96 (80-100) fL MCH 33 (26-34) pg MCHC 35 (32-36) gm/dL RDW Coeff of Zack 13.0 (11.5-15.5) % Plt Count 296 (140-440) K/uL Neut % (Auto) 68.3 (42.0-72.0) % Lymph % (Auto) 22.1 (20-44) % [place] % (Auto) 6.1 (0.0-11.0) % Eos % (Auto) 2.3 (0.0-7.0) % Baso % (Auto) 0.3 (0.0-3.0) % Neut # (Auto) 7.60 H (1.7-7.0) K/uL Lymph # (Auto) 2.40 (0.90-2.90) K/uL [place] # (Auto) 0.70 (0.00-0.90) K/UL Eos # (Auto) 0.30 (0.00-0.50) K/uL Baso # (Auto) 0.00 (0.00-0.30) K/uL Abs Immat Gran (auto) 0.10 (0.00-0.30) K/uL Imm/Tot Granulo (auto) 0.9 % Sodium 141 (135-149) mmol/L Potassium 4.5 (3.6-5.1) mmol/L Chloride 107 (96-114) mmol/L Carbon Dioxide 26 (20-32) mmol/L Anion Gap 8 (7-15) mEq/L BUN 15 (7-30) mg/dL Creatinine 0.8 (0.5-1.5) mg/dL Estimated Creat Clear 51.02 Estimated GFR 84 ml/min Glucose 110 (60-115) mg/dL Lactate 1.5 (0.5-1.9) mmol/L Calcium 9.5 (8.4-10.6) mg/dL Total Bilirubin 0.6 (0.1-1.5) mg/dL AST 59 H (12-35) U/L ALT 74 H (4-35) U/L Alkaline Phosphatase 63 (40-150) U/L C-Reactive Protein 0.6 (0.5-1.0) mg/dL Total Protein 8.4 H (6.0-8.3) g/dL Albumin 4.6 (3.3-5.0) g/dL Lipase 181 (23-300) U/L Urine Color Yellow (Yellow) Urine Appearance Cloudy A (Clear) Urine pH 6.0 (5.0-8.5) Ur Specific [place] 1.015 (1.000-1.030) Urine Protein Negative (Negative) Urine Glucose (UA) Negative (Negative) Urine Ketones Negative (Negative) Urine Blood 2+ A (Negative) Urine Nitrite Positive A (Negative) Urine Bilirubin Negative (Negative) Urine Urobilinogen 0.2 (0.2-1.0) Ur Leukocyte Esterase 2+ A (Negative) Urine RBC 2-5 A (0-2) Urine WBC 25-50 A (0-5) Ur Squamous Epith Cells Moderate A (None-Few) Urine Bacteria Many A (None) Imaging Data CT scan - abdomen: Attestation: I have reviewed the pertinent imaging results. Radiologist's impression: IMPRESSION: 1. Fluid-filled small bowel loops are present in the mid abdomen and near the upper limits of normal in size. Feculent material present and small bowel loops in the right lower quadrant proximal to the terminal ileum which has mild wall thickening. Clinical correlation recommended to exclude Crohn`s disease or infectious enteritis causing functional obstruction of the proximal small bowel. Dictated by Ishaan Ceballos MD @ 11/02/2024 1:45:48 AM Please note that all CT scans at this facility use dose modulation, iterative reconstruction, and/or weight-based dosing when appropriate to reduce radiation dose to as low as reasonably achievable. Dictated by: Ishaan Ceballos MD @ 11/02/2024 01:45:54 Discharge Plan Discharge Clinical Impression: Urinary tract infection, Enteritis Patient Disposition: Home, Self-Care Condition: Improved Instructions: Urinary Tract Infection in Women (DC), Enteritis (ED) Additional Instructions: As we discussed, there are 2 things going on right now. The 1st is that you have a significant bladder infection. We have started you on an antibiotic, level floxacillin for this. He will take 1 pill once daily. Your 1st dose was given here in the emergency department. You will continue taking this once daily for a total of 5 days. Your next dose is due Sunday morning, as your dose today counts as your Sunday morning dose. You also have inflammation of the small intestine but no signs of a true obstruction, gallbladder disease, pancreatitis or other severe complication. No solid foods for the next 2 days. Lots of clear liquids only, slowly advancing after 2 days to crackers, bland foods and then to real solid foods in 3-4 days. I have given you a prescription for an anti nausea medicine, ondansetron also known as Zofran. You may take this up to every 6 hours as needed for nausea. Continue drinking lots of clear fluids. If you do not eat solid foods, your pain will not be quite as bad. For pain, I recommend Tylenol 1000 mg every 6 hours. You may also use ibuprofen 600 mg every 6 hours. You must max these out before dipping into the other choices. I have given you a very limited supply of oxycodone, a strong oral narcotic pain medication to use in addition to the Tylenol and ibuprofen. I have also given her prescription for Flexeril also known as cyclobenzaprine. This is a muscle relaxant. You may take 1 pill to twice daily as needed for muscle spasm and to help you sleep. It will cause drowsiness and is mainly just intended for bedtime. Things should be improving in 48 hours. If you have high fever, bloody vomit, bloody stools or other signs of major complication, you should be re-evaluated. Heating pads, hot showers and hot baths will also likely help when you get the spasms of abdominal pain. Activity Level: Activity as Tolerated Discharge Diet: Regular Prescriptions: No Action quetiapine 300 mg tablet 600 mg PO QPM Follow Up/Referrals: Provider,Not a Local [Primary Care Provider, Family Practice] Stand Alone Forms: [facility] Info Instructions
[2024-11-02] MEDS: ONDANSETRON 2 MG/ML inj 4 MG IVP (01:13)
[2024-11-02 01:22] LABS: Lactate* 1.5 mmol/L (0.5-1.9)
[2024-11-02 01:23] LABS: Hematocrit 44.6 % (33.0-51.0); Hemoglobin* 15.4 gm/dL (12.0-16.0); Immature Granulocytes Abs Auto 0.10 K/uL (0.00-0.30); Immature Granulocytes Pct Auto 0.9 %; Mean Corpuscular HGB Conc 35 gm/dL (32-36); Mean Corpuscular Hemoglobin 33 pg (26-34); Mean Corpuscular Volume 96 fL (80-100); RDW Coefficient of Variation % 13.0 % (11.5-15.5); Red Blood Count 4.63 m/uL (4.00-5.20); White Blood Count* 11.06 K/uL (4.50-11.00)
[2024-11-02 01:25] LABS: Lymphocytes Absolute Auto 2.40 K/uL (0.90-2.90); Slide Review Reflex No
[2024-11-02 01:27] LABS: Appearance Urine Cloudy (Clear)
[2024-11-02 01:39] LABS: Albumin* 4.6 g/dL (3.3-5.0); Chloride* 107 mmol/L (96-114)
[2024-11-02 01:40] LABS: Potassium* 4.5 mmol/L (3.6-5.1); Sodium* 141 mmol/L (135-149)
[2024-11-02 01:42] LABS: Alanine Aminotransferase* 74 U/L (4-35); Aspartate Amino Transferase* 59 U/L (12-35); Blood Urea Nitrogen* 15 mg/dL (7-30); Creatinine* 0.8 mg/dL (0.5-1.5); Est. Creatinine Clearance* 51.02; Estimated Glomerular Filt Rate 84 ml/min
[2024-11-02 01:43] LABS: Alkaline Phosphatase* 63 U/L (40-150); Anion Gap 8 mEq/L (7-15); Bilirubin Total* 0.6 mg/dL (0.1-1.5); Calcium* 9.5 mg/dL (8.4-10.6); Carbon Dioxide* 26 mmol/L (20-32); Glucose* 110 mg/dL (60-115); Total Protein* 8.4 g/dL (6.0-8.3)
[2024-11-02] MEDS: LACTATED RINGERS 1000 ML 1,000 ML IV (01:57)
[2024-11-02 01:59] VITALS: BP 121/78; PULSE 81; RESP 16; O2SAT 93
--- OUTSIDE RECORDS SUMMARY | 2024-11-02 02:40 | XMS_ITS | CCD ---
Author Organization Unknown Care Team Providers Care Electrical Tester Name Role Phone Property Master, [place] Primary Care Provider Unava ilable Unavailable Chronic Care Management Unavaila ble Summary Purpose DataExchange Insurance Providers Payer name Policy type / Coverage type Covered libertarian ID Effective Begin Date Effective End Date [employer] ([facility]) Commercial Insurance [id number] Unknown Medicaid [place] Commercial Insurance [id number] Unknown Family History Family History data not found Medication Administered No Medication Administered data Reason For Visit No Reason For Visit data
--- OUTSIDE RECORDS SUMMARY | 2024-11-02 02:40 | XMS_ITS | CCD ---
Author Organization Unknown Care Team Providers Care Honing Job Setter Name Role Phone Paleologist, [place] Primary Care Provider Unava ilable Unavailable Chronic Care Management Unavaila ble Summary Purpose DataExchange Insurance Providers Payer name Policy type / Coverage type Covered republican ID Effective Begin Date Effective End Date [employer] ([facility]) Commercial Insurance [id number] Unknown Medicaid [place] Commercial Insurance [id number] Unknown Family History Family History data not found Medication Administered No Medication Administered data Reason For Visit No Reason For Visit data
[2024-11-02] MEDS: KETOROLAC 10 MG TABLET PO (02:42)
[2024-11-02] MEDS: ACETAMINOPHEN 500 MG TABLET 1000 MG PO (02:42)
--- NOTE | 2024-11-02 15:39 | ED.NURSE ---
Pt called inquiring about rx for abx that was supposed to be sent to [facility]. Provided pt info to Dr. Cotton to send abx to the pharmacy for pt.
== END 2024-11-02 02:59 | disposition home or self-care (01) ==
PROVIDERS: Emergency Provider Family Medicine
DX: N39.0 Urinary tract infection, site not specified (principal); K52.9 Noninfective gastroenteritis and colitis, unspecified; Z53.21 Procedure and treatment not carried out due to patient leaving prior to being seen by health care provider
CPT/HCPCS: 36415; 74177; 80053; 81001; 81003; 83605; 83690; 85025; 86140; 87086; 96374; 96375; 99284; A9270; J1171; J2405; J7120; Q9967

== ENCOUNTER 2025-01-30 19:09 | Emergency (ER) | payer OTHER, SELFPAY ==
--- OUTSIDE RECORDS SUMMARY | 2025-01-30 19:11 | XMS_ITS | Clinical Summary ---
Author Organization [employer] Address [address] [place] [address] Care Team Providers Care Social Media Marketer Name Role Phone Clinic, No Pcp Or [...] (12/19/2017): 12/19/17 updated/ signed .Eugenia Jacobs DNP, DRYER OPERATOR, MANAGER RISK MANAGEMENT/psychiatry History of bipolar disorder 08/24/2017 Depression 08/24/2017 Controlled substance agreement signed 08/24/2017 Overview (08/24/2017): 08/24/17 signed .Eugenia Jacobs DNP, DRYER OPERATOR, MANAGER RISK MANAGEMENT/psychiatry Personality disorder 05/11/2017 Attention deficit hyperactiv ity [...] on file Legal Sex Female 5:45 AM WEAPONS AND TACTICS INSTRUCTOR Gender Identity Not on file Sexual Orientation Not on file Obstetrics History Para Term AB IAB SAB Ectopic Multiple Livin g Live Births 6 Last Filed Vital Signs Vital Sign Reading Time Taken Comments Blood Pressure 115/78 09/11/2022 1:37 PM CDT Pulse 86 07/10/2023 4:06 PM CDT Temperature 36.8 C (98.3 F) 06/03/2021 1:43 PM WEAPONS AND TACTICS INSTRUCTOR Respiratory Rate 18 09/11/2022 1:37 PM CDT [...] 09/15/2023 09/14/2022, 09/13/2022, 09/12/2022, Additional history exists Pap test for age 21-65 05/19/2024 , 05/19/2021, 07/24/2018, Additional history exists COVID-19 vaccine series (2023- season) 2024 Influenza Vaccine (#1) 2024 Lipids for age [...] DOSE WO CONTRAST Routine 06/03/2021 2:09 PM WEAPONS AND TACTICS INSTRUCTOR Encounter for screening for malignant neoplasm of lung in current smoker with 30 pack year history or greater ANTI HCV Routine 05/19/2021 4:39 PM WEAPONS AND TACTICS INSTRUCTOR Need for hepatitis C screening test BLASTING MINER THIN PREP PAP SCREEN IMAGED Routine 05/19/2021 4:18 PM WEAPONS AND TACTICS INSTRUCTOR Pap smear for cervical cancer screening COLONOSCOPY 08/15/2018 10:38 AM CDT from Last 3 Months or Most Recently Relevant to Health Maintenance Results * LC HIV-1/O/2, 4TH GENERATION (09/11/2022 2:11 PM CDT) Pathologist [facility] [place] HIV Scr 4th Gen Non Reactive Non Reactive 09/13/2022 2:08 PM CDT [facility] ([facility]) Comment: HIV Negative HIV-1/HIV-2 antibodies and HIV-1 p24 antigen were NOT detected. There is no laboratory evidence of HIV infection. Blood BLOOD SPECIMEN / Unknown Venipuncture / Unknown 09/11/2022 2:11 PM CDT 09/11/2022 2:12 PM CDT Narrative [facility] ([facility]) - 09/13/2022 2:08 PM CDT Performed at: [address] [place] [address] [id number] [employer] Librarian: Paras Acevedo MD, Phone: [phone] us Derek Fair MD LABORATORY Final Res ult [facility] ([facility]) [address] [place] [address], * (ABNORMAL) LIPID PANEL W REFLEX MEASURED LDL (09/11/2022 2:11 PM CDT) CHOLESTEROL,TOTAL 237(H) 100 - 199 mg/dL 09/12/2022 3:52 PM CDT [facility] [employer] LABORATORY-[facility] TRAL LABORATORY Comment: Cholesterol, Total Reference Ranges Desirable <200 mg/dL Borderline 200-239 mg/dL High >=240 mg/dL TRIGLYCERIDES 372(H) <150 mg/dL 09/12/2022 3:52 PM CDT [facility] LABORATORY HDL CHOLESTEROL 56 >40 mg/dL 3:52 PM CDT [facility] LAB[facility] TRAL LAB[facility]ATORY NON-HDL CHOLESTEROL 181(H) <145 mg/dl 09/12/2022 3:52 PM CDT [facility] TRAL LABORATORY CHOL/HDL RATIO 4.23 <4.50 09/12/2022 3:52 PM CDT [facility] TRAL LABORATORY LDL CHOLESTEROL 107 <=130 mg/dL 09/12/2022 3:52 PM CDT [facility] TRAL LABORATORY VLDL CHOLESTEROL 74(H) <=30 mg/dL 09/12/2022 3:52 PM CDT [facility] TRAL LABORATORY PROVIDER ORDERED STATUS RANDOM 09/12/2022 3:52 PM CDT [facility] TRAL LABORATORY Blood BLOOD SPECIMEN / Unknown Venipuncture / Unknown 09/11/2022 2:11 PM CDT 09/11/2022 2:12 PM CDT us Derek Fair MD CHEMISTRY Final Res ult [facility] LABORATORY [address] [place] [address], [place] * CT CHEST SCREENING LOW DOSE WO CONTRAST (06/03/2021 2:09 PM WEAPONS AND TACTICS INSTRUCTOR) Anatomical Region Laterality Modality Computed Tomogra phy Impressions 06/05/2021 11:55 AM WEAPONS AND TACTICS INSTRUCTOR 1. Tiny perifissural lung nodule. 2. Small [...] @06/04/2021 8:58:44 PM Narrative 06/05/2021 11:55 AM WEAPONS AND TACTICS INSTRUCTOR For Patients: As a result of the [...] mild thoracic disc degeneration. us Pamela Batista SCRAP DROP OPERATOR CT Final Result * ANTI HCV (05/19/2021 4:39 PM WEAPONS AND TACTICS INSTRUCTOR) Pathologist [facility] [place] HEPATITIS C ANTIBODY Non-React jennifer Non-React jennifer 05/20/2021 4:10 PM WEAPONS AND TACTICS INSTRUCTOR [facility] Comment:Antibodies to HCV no t detected; does not exclude the possibility of exposure to HCV. Blood BLOOD SPECIMEN / Unknown Venipuncture / Unknown 05/19/2021 4:39 PM WEAPONS AND TACTICS INSTRUCTOR 05/19/2021 4:41 PM WEAPONS AND TACTICS INSTRUCTOR Monica Mac MD SEND OUTS Final Resul t [facility] [employer] [facility] [address] [place] [address], [place] * BLASTING MINER THIN PREP PAP SCREEN IMAGED (05/19/2021 4:18 PM WEAPONS AND TACTICS INSTRUCTOR) Pathologist [facility] [place] Case Report Gynecologic Cytology Report Case: [id number] Authorizing Provider: Monica Mac MD Collected: 05/19/2021 1618 Ordering Location: [facility] Received: 05/20/2021 0710 Clinic First Screen: Patricia Ricardo Rescreen: Lizbeth Kimball Specimen: BLASTING MINER ThinPrep Vial Screening, Cervical 05/31/2021 7:35 AM WEAPONS AND TACTICS INSTRUCTOR [facility] INTERPRETATION/ RESULT NEGATIVE FOR INTRAEPITHELIAL LESION OR MALIGNANCY (NIL) (none) 05/31/2021 7:35 AM WEAPONS AND TACTICS INSTRUCTOR [facility] at 0735 WEAPONS AND TACTICS INSTRUCTOR SPECIMEN ADEQUACY Satisfactory for evaluation Endocervical component present 05/31/2021 7:35 AM WEAPONS AND TACTICS INSTRUCTOR [facility] HPV REQUEST HPV and PAP 05/31/2021 7:35 AM WEAPONS AND TACTICS INSTRUCTOR [facility] LAB[facility] Date of LMP postmenopausal 2 7:35 AM WEAPONS AND TACTICS INSTRUCTOR [facility] Last Pap Date 07/24/18 05/31/2021 7:35 AM WEAPONS AND TACTICS INSTRUCTOR [facility] Last Pap Result NIL 2 7:35 AM WEAPONS AND TACTICS INSTRUCTOR [facility] LAB[facility] Abnormal Pap or [place] Bx in last 5 years Yes 05/31/2021 7:35 AM WEAPONS AND TACTICS INSTRUCTOR [facility] Menstrual Status Postmenopausal 05/31/2021 7:35 AM WEAPONS AND TACTICS INSTRUCTOR [facility] LABORATORY [place] Bx Done Today No 05/31/2021 7:35 AM WEAPONS AND TACTICS INSTRUCTOR [facility] Additional Information None given 05/31/2021 7:35 AM WEAPONS AND TACTICS INSTRUCTOR [facility] Comment: Cytology is screened at [facility] Central Laboratory - [address] [address] and [facility] - [address] [place] [address] and Laboratory - [address] [place] [address] Interpreted at [facility] Central Laboratory - [address], [place] [address] Automated Review Successful 05/31/2021 7:35 AM [facility] LABORAT[facility] Comment:Specimen processed s uccessfully by automated fixed wing aircraft flight engineer device, ThinPrep Imaging System, [employer] ANCILLARY TESTING BLASTING MINER HPV Ordered, Please see separate report 05/31/2021 7:35 AM WEAPONS AND TACTICS INSTRUCTOR [facility] LABORAT[facility] Note The pap test is a screening technique, not a diagnostic procedure. It is used primarily to screen for squamous cancers and precursor lesions. Published studies have shown that it is subject to both false negative and false positive results. The pap test should not be used as the sole means to diagnose or exclude pre-malignant and malignant lesions. 05/31/2021 7:35 AM WEAPONS AND TACTICS INSTRUCTOR [facility] LABORATORY-C ENTRAL LABORATORY Other (Cervical) Non-Blood / Unknown 05/19/2021 4:18 PM WEAPONS AND TACTICS INSTRUCTOR 05/20/2021 7:10 AM WEAPONS AND TACTICS INSTRUCTOR us Monica Mac MD PATHOLOGY/CYTOLOGY Final Re sult [facility] LABORATORY-CENTRAL LABORATORY [address] [place] [address], [place] * COLONOSCOPY (08/15/2018 10:38 AM CDT) [...] an adequate candidate for conscious sedation. The [id number] was passed through the anus and advanced [...] 10:38 AM Procedure Code(s): --- Professional --- 75815, Colonoscopy, flexible; with removalof tumor(s), polyp(s), or other lesion(s) bysbakari technique 07609, 59, Colonoscopy, flexible; withbiopsy, single or multiple Diagnosis Code(s): --- Professional --- Z12.11, Encounter for screening formalignant neoplasm of colon D12.0, Benign neoplasm of cecum K62.1, Rectal polyp Q43.8, Other specified congenitalmalformations of intestine CPT copyright 2017 [employer]. All rights reserved. The codes documented in this report are preliminary and upon medical biller coder reviewmay be revised to meet current compliance requirements. Scope In: 11:38:36 AM Scope Withdrawal Time 0 hours 11 minutes 2 seconds Scope Out: 12:06:42 PM Roberto Martines MD PROCEDURE ORD Final Res ult from Last 3 Months or Most Recently Relevant to Health Maintenance Insurance MEDICARE PART B HB ONLY MEDICARE PART A HB ONLY MEDICA [employer] [facility] COMP MEDICARE PART B HB ONLY MEDICARE PART A HB ONLY Care Teams Social Media Marketer Relationship Specialty Start Date End Date Clinic, No Pcp Or . PCP - General 11/17/19
--- OUTSIDE RECORDS SUMMARY | 2025-01-30 19:11 | XMS_ITS | Clinical Summary ---
Author Organization [facility] Address [address] [place] [address] Care Team Providers Care Crotch Breaker Name Role Phone No Ref-Primary, Physician Primary Care Provider Vanessa Mariee MD Unavailable [phone] Allergies Active Allergy Reactions Criticality Noted Date [...] on file Legal Sex Female 3:17 AM REGISTRATION OFFICER Gender Identity Not on file Sexual Orientation Not on file Last Filed Vital Signs Vital Sign Reading Time Taken Comments Blood Pressure 124/78 04/19/2012 11:04 AM REGISTRATION OFFICER Pulse 80 04/19/2012 11:04 AM REGISTRATION OFFICER Temperature 36.6 C (97.9 F) 02/02/2012 11:58 AM CDT Respiratory Rate 12 02/02/2012 11:58 AM CDT Oxygen Saturation 100% 01/25/2012 2:34 PM CDT Inhaled Oxygen Concentration - - Weight 88 kg (194 lb) 04/19/2012 11:04 AM REGISTRATION OFFICER Height 165.1 cm (5' 5) 02/02/2012 11:58 AM CDT Body Mass Index 32.28 02/02/2012 11:58 AM CDT Plan of Treatment Not on file Insurance MEDICA ACCESS ABILITY [place] Care Teams Crotch Breaker Relationship Specialty Start Date End Date No Ref-Primary, Physician PCP - General 09/01/20 Vanessa Mariee MD [address] [place] [id number] Otolaryngology 09/01/20
[2025-01-30 19:12] VITALS: BP 133/91; PULSE 86; RESP 16; TEMP 36.6; O2SAT 97; BMI 32.0
--- NOTE | 2025-01-30 19:27 | ED.GENADULT ---
HPI - General Adult General Chief complaint: Extremity Pain/Injury, Upper Stated complaint: pain in right hand Time Seen by Provider: 01/30/25 19:19 Source: patient Mode of arrival: ambulatory Limitations: no limitations History of Present Illness HPI narrative: 64-year-old female presenting today with pain of her fingers. She states that the pain started 2 days ago. She 1st noticed it when she woke up in the morning she had discomfort in her pointer finger on the right hand and over the last 2 days this has spread to the middle finger pointer finger and the thumb. Denies injury to the area. She describes it as a throbbing sensation of those 3 fingers. She states this happen her about a year ago but it went away after a day or so. Patient does state that she sleeps with her hands bent around her pillow. 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, unspecified eye (ICD-10) Presbyopia ?H52.4 - Presbyopia (ICD-10) Prediabetes ?R73.03 - Prediabetes (ICD-10) Abnormal pupillary function, unspecified ?H57.00 - Unspecified anomaly of pupillary function (ICD-10) Depression ?F32.A - Depression, unspecified (ICD-10) Personality disorder ?F60.9 - Personality disorder, unspecified (ICD-10) Anxiety ?F41.9 - Anxiety disorder, unspecified (ICD-10) ADD (attention deficit disorder) ?F98.8 - Other specified behavioral and emotional disorders with onset usually occurring in childhood and adolescence (ICD-10) Bipolar 1 disorder ?F31.9 - Bipolar disorder, unspecified (ICD-10) Social History Smoking Status: Current every day smoker What tobacco products do you use: cigarettes Smoking packs per day: 1 Smoking cigarettes per day: 20.0 Years smoked: 30 Smoking pack-years: 30.00 Do you use any of these nicotine containing products: None How often do you have a drink containing alcohol: never How often do you have six or more drinks on one occasion: Never AUDIT-C Alcohol total score: 0 Non-prescribed substance use: denies use service: No Exam Narrative: Exam Narrative: Well-nourished well-developed patient in no acute distress. Alert and oriented. Answers questions appropriately. Mood and affect are appropriate. Thoughts are goal oriented and rational. Extremities: Hand has normal appearance she has slight swelling of the 2nd and 3rd digits. She has a very positive Phalen sign, Tinels sign is slightly positive also. Normal radial pulse. There is no erythema or skin changes. She has full range of motion of all her fingers. Digital Advertising Specialist strength is normal. Const: Vital Signs, click to edit/add: Vital Signs - 24 hr 01/30/25 19:12 Temperature 97.9 F Pulse Rate [Pulse Oximeter] 86 Respiratory Rate 16 Blood Pressure [[facility]] 133/91 H Pulse Oximetry 97 Course Vital Signs Vital signs: Initial Vital Signs Temperature 97.9 F 01/30/25 19:12 Temperature Source Temporal Artery Scan 01/30/25 19:12 Pulse Rate 86 01/30/25 19:12 Respiratory Rate 16 01/30/25 19:12 Blood Pressure 133/91 H 01/30/25 19:12 Blood Pressure Mean 105 01/30/25 19:12 Pulse Oximetry 97 01/30/25 19:12 Vital Signs Temperature 97.9 F 01/30/25 19:12 Pulse Rate 86 01/30/25 19:12 Respiratory Rate 16 01/30/25 19:12 Blood Pressure 133/91 H 01/30/25 19:12 Pulse Oximetry 97 01/30/25 19:12 Temperature 97.9 F 01/30/25 19:12 Pulse Rate 86 01/30/25 19:12 Respiratory Rate 16 01/30/25 19:12 Blood Pressure 133/91 H 01/30/25 19:12 Pulse Oximetry 97 01/30/25 19:12 Medical Decision Making MDM Narrative Medical decision making narrative: 64-year-old female with carpal tunnel syndrome. Place the patient in a wrist cock-up splint. Will use Toradol for the next few days to help with the discomfort. Follow-up with primary care next week. Discharge Plan Discharge Clinical Impression: Acute carpal tunnel syndrome Patient Disposition: Home, Self-Care Condition: Stable Instructions: Carpal Tunnel Syndrome (DC) Additional Instructions: Wear splint at all times, including when you are sleeping. Okay to take off to shower. Recommend wearing it until symptoms resolve-can take several weeks. Okay to use pain medication as needed/as prescribed. Use with food. Recommend following up with your primary care provider in the next 10-14 days. Prescriptions: New ketorolac 10 mg tablet 10 mg PO TID PRN (Reason: Pain) 5 Days Qty: 15 0RF No Action quetiapine 300 mg tablet 600 mg PO QPM Follow Up/Referrals: Provider,Not a Local [Primary Care Provider, Family Practice] Stand Alone Forms: [employer] Info Instructions
--- OUTSIDE RECORDS SUMMARY | 2025-01-30 20:34 | XMS_ITS | CCD ---
Author Organization Unknown Care Team Providers Care Coating Line Worker Name Role Phone Supplemental Nurse, [place] Primary Care Provider Unava ilable Unavailable Chronic Care Management Unavaila ble Summary Purpose [employer] Insurance Providers Payer name Policy type / Coverage type Covered alliance party ID Effective Begin Date Effective End Date [employer] ([facility]) Commercial Insurance [id number] Unknown Medicaid [place] Commercial Insurance [id number] Unknown Family History Family History data not found Medication Administered No Medication Administered data Reason For Visit No Reason For Visit data
== END 2025-01-30 19:40 | disposition home or self-care (01) ==
PROVIDERS: Emergency Provider Family Medicine
DX: G56.01 Carpal tunnel syndrome, right upper limb (principal)
CPT/HCPCS: 29125; 99283; 99284